=== PATIENT | male | born 1980 | race Caucasian/White ===

== ENCOUNTER 2022-01-31 12:53 | Emergency (ER) | payer SELFPAY ==
[2022-01-31 13:01] VITALS: BP 126/62; PULSE 72; RESP 18; TEMP 99.1; BMI 40.2
[2022-01-31] MEDS ORDERED: KETOROLAC TROMETHAMINE 30 MG/1 ML VIAL IM ONE (14:04)
[2022-01-31] MEDS ORDERED: METHOCARBAMOL 500 MG TABLET PO ONE (14:04)
[2022-01-31] MEDS ORDERED: KETOROLAC TROMETHAMINE 30 MG/1 ML VIAL ONE (14:10)
[2022-01-31] MEDS ORDERED: METHOCARBAMOL 500 MG TABLET ONE (14:10)
== END 2022-01-31 15:38 | disposition home or self-care (01) ==
LOC: JERFT 12:53
PROC: 3E0233Z Introduction of Anti-inflammatory into Muscle, Percutaneous Approach (ICD-10-PCS; principal; 2022-01-31)
DX: M54.50 Low back pain, unspecified (principal); X50.0XXA Overexertion from strenuous movement or load, initial encounter
CPT/HCPCS: 99284-25

== ENCOUNTER 2024-04-18 12:23 | Emergency (ER) | payer OTHER ==
[2024-04-18 12:36] VITALS: BP 145/92; PULSE 86; RESP 18; TEMP 98.2; BMI 33.0
[2024-04-18] MEDS ORDERED: METHOCARBAMOL 500 MG TABLET ONE (13:23)
[2024-04-18] MEDS ORDERED: KETOROLAC TROMETHAMINE 15 MG/ML VIAL ONE (13:23)
[2024-04-18] MEDS ORDERED: ACETAMINOPHEN 500 MG TABLET (FP) ONE (13:23)
[2024-04-18] MEDS: KETOROLAC TROMETHAMINE 15 MG/ML VIAL IM ONE (13:27)
[2024-04-18] MEDS: METHOCARBAMOL 500 MG TABLET PO ONE (13:27)
[2024-04-18] MEDS: ACETAMINOPHEN 500 MG TABLET (FP) PO ONE (13:28)
== END 2024-04-18 15:24 | disposition home or self-care (01) ==
LOC: JERFT 12:23
PROC: 3E0233Z Introduction of Anti-inflammatory into Muscle, Percutaneous Approach (ICD-10-PCS; principal; 2024-04-18)
DX: S39.012A Strain of muscle, fascia and tendon of lower back, initial encounter (principal); X50.0XXA Overexertion from strenuous movement or load, initial encounter
CPT/HCPCS: 72100-TC-FY; 96374; 99284-25